=== PATIENT | female | born 1975 | race Caucasian/White ===

== ENCOUNTER 2025-06-12 06:00 | Day surgery (SDC) | payer OTHER ==
[2025-06-10 09:49] LABS: BASO % 0.2 % (0.1-1.2); EOS # 0.08 (0.04-0.54); EOS % 1.2 % (0.7-7.0); LYMPH # 1.38 (1.18-3.74); LYMPH % 21.4 % (19.3-53.1); MEAN PLATELET VOLUME 9.20 fl (9.4-12.4); MONO # 0.66 (0.24-0.82); MONO % 10.2 % (4.7-12.5); NEUT # 4.31 (1.56-6.13); NEUT % 66.8 % (34.0-71.1); RED CELL DISTRIBUTION WIDTH 13.2 % (11.6-14.4)
[2025-06-10 10:05] LABS: URINE APPEARANCE Clear; URINE BILIRRUBIN Negative (NEGATIVE); URINE BLOOD Moderate; URINE COLOR Yellow; URINE GLUCOSE Negative (NEGATIVE); URINE KETONE Negative (NEGATIVE); URINE LEUKOCYTE Trace; URINE NITRATE Negative; URINE PROTEIN Negative (NEGATIVE); URINE UROBILINOGEN 0.2 E.U./dl
[2025-06-10 10:13] LABS: INR 0.98
[2025-06-10 10:14] LABS: URINE BACTERIA 37.2 uL (0.0-1933); URINE EPITHELIAL CELLS 9.9 uL (0.0-38.8); URINE RBC 62.9 uL (0.0-20.8); URINE WBC 24.0 uL (0.0-23.2)
[2025-06-10 10:15] LABS: URINE CAST 0.00 uL (0.0-1.40)
[2025-06-10 10:35] LABS: ALT/SGPT 30.0 U/L (12-78); AST/SGOT 19.0 U/L (15-37); BILIRUBIN TOTAL 0.56 mg/dL (0.3-1.2); BUN CREA RATIO 20.0 (7.0-25.0); CREATININE SERUM 0.59 mg/dL (0.55-1.02); GFR 108.33; GLOBULINA 3.9 G/DL (2.4-3.5); GLUCOSE FASTING 80.0 mg/dL (65-100); OSMOLALITY SERUM 280.0 MOSM/KG (275-295)
[2025-06-10 11:18] LABS: COVID-19 AG NEGATIVE (NEGATIVE)
[2025-06-10 14:49] VITALS: BP 126/81
[~2025-06-12] VITALS: Ht 162.6 cm; Wt 59.0 kg
[~2025-06-12 06:00] MED LIST: CHILDREN'S ASPI81 MG PO; CRESTOR40 MG PO
[2025-06-12] MEDS ORDERED: CEFAZOLIN SODIUM 1,000 MG VIAL ONE (09:10)
[2025-06-12] MEDS ORDERED: ENOXAPARIN SODIUM 30 MG/0.3 ML SYRINGE SUBCUTANEO ONE (12:30)
[2025-06-12] MEDS ORDERED: SUGAMMADEX SODIUM 200 MG/2 ML VIAL IV ONE (14:15)
== END 2025-06-12 21:40 | disposition home or self-care (01) ==
LOC: CIR.AMB 06:00
PROVIDERS: ATTEND Surgery
DX: D05.11 Intraductal carcinoma in situ of right breast (principal)

== ENCOUNTER 2025-06-21 14:12 | Emergency (ER) | payer OTHER ==
[~2025-06-21] VITALS: Ht 162.6 cm; Wt 59.0 kg
[2025-06-21 15:00] VITALS: BP 133/77; O2SAT 100
[2025-06-21] MEDS ORDERED: KETOROLAC TROMETHAMINE 30 MG VIAL IU ONE (15:30)
[2025-06-21] MEDS ORDERED: 0.9 % SODIUM CHLORIDE 1,000 ML IV SCH (15:30)
[2025-06-21] MEDS ORDERED: FAMOtidine 10 MG/ML (4ML VIAL) IV PUSH ONE (15:30)
[2025-06-21] MEDS ORDERED: ONDANSETRON HCL 4 MG in 0.9 % SODIUM CHLORIDE 50 ML IV ONE (15:30)
[2025-06-21] MEDS ORDERED: ACETAMINOPHEN 500 MG GEL..CAP PO ONE (15:30)
[2025-06-21 17:45] LABS: BASO % 0.1 % (0.1-1.2); EOS # 0.08 (0.04-0.54); EOS % 0.6 % (0.7-7.0); LYMPH # 2.17 (1.18-3.74); LYMPH % 17.2 % (19.3-53.1); MEAN PLATELET VOLUME 9.10 fl (9.4-12.4); MONO # 1.12 (0.24-0.82); MONO % 8.9 % (4.7-12.5); NEUT # 9.21 (1.56-6.13); NEUT % 72.8 % (34.0-71.1); RED CELL DISTRIBUTION WIDTH 13.2 % (11.6-14.4)
[2025-06-21 17:47] LABS: ERYTHROCYTE SEDIMENTATION RATE 20 mm/hr (0-20)
[2025-06-21 18:14] LABS: ALT/SGPT 32 U/L (12-78); AST/SGOT 17 U/L (15-37); BILIRUBIN TOTAL 0.23 mg/dL (0.3-1.2); BUN CREA RATIO 21 (7.0-25.0); CREATININE SERUM 0.61 mg/dL (0.55-1.02); GFR 104.24; GLOBULINA 4.5 G/DL (2.4-3.5); GLUCOSE FASTING 96 mg/dL (65-100); OSMOLALITY SERUM 279 MOSM/KG (275-295)
[2025-06-21 18:16] LABS: HCG QUANTITATIVE < 1 mUI/mL (1-3)
[2025-06-21 19:46] LABS: URINE APPEARANCE Clear; URINE BILIRRUBIN Negative (NEGATIVE); URINE BLOOD Moderate; URINE COLOR Yellow; URINE GLUCOSE Negative (NEGATIVE); URINE KETONE Negative (NEGATIVE); URINE LEUKOCYTE Small; URINE NITRATE Negative; URINE PROTEIN Negative (NEGATIVE); URINE UROBILINOGEN 0.2 E.U./dl
[2025-06-21 19:51] LABS: URINE BACTERIA 117.5 uL (0.0-1933); URINE EPITHELIAL CELLS 36.2 uL (0.0-38.8); URINE RBC 22.2 uL (0.0-20.8); URINE WBC 98.0 uL (0.0-23.2)
[2025-06-21] MEDS ORDERED: AMOXICILLIN875 MG PO (20:11)
[2025-06-21] MEDS ORDERED: PEPCID AC20 MG PO (20:11)
[2025-06-21] MEDS ORDERED: KETO10TA2 PO (20:11)
[2025-06-21 20:16] LABS: URINE CAST 0.14 uL (0.0-1.40)
== END 2025-06-21 22:22 | disposition home or self-care (01) ==
LOC: ER 14:13
PROVIDERS: General Practice
DX: N83.209 Unspecified ovarian cyst, unspecified side (principal); R10.9 Unspecified abdominal pain